=== PATIENT | female | born 2000 | race Caucasian/White ===

== ENCOUNTER 2024-07-07 20:52 | Emergency (ER) | payer MEDICAID ==
[~2024-07-07] VITALS: Ht 162.6 cm; Wt 79.8 kg
[2024-07-07 21:05] VITALS: BP_SYST 127; PULSE 115; RESP 16; TEMP 98.1; O2SAT 100
[2024-07-07] MEDS ORDERED: IBUP-1969 PO (22:38)
[2024-07-07] MEDS ORDERED: AMOX-423 PO (22:38)
[2024-07-07 22:45] VITALS: BP_SYST 127; PULSE 115; RESP 16; TEMP 98.1; O2SAT 100
== END 2024-07-07 22:45 | disposition home or self-care (01) ==
LOC: SED 20:52
DX: H66.92 Otitis media, unspecified, left ear (principal); J02.9 Acute pharyngitis, unspecified; R20.2 Paresthesia of skin
CPT/HCPCS: 99283